=== PATIENT | female | born 1975 ===

== ENCOUNTER 2023-03-16 05:40 | Day surgery (SDC) | payer OTHER ==
[~2023-03-16 05:40] MED LIST: CLONAZEPAM0.5 M1 PO; LEVOTHYROXINE25 MCG
== END 2023-03-16 19:35 | disposition home or self-care (01) ==
LOC: CIR.AMB 05:40
PROVIDERS: ATTEND Specialist
DX: L98.7 Excessive and redundant skin and subcutaneous tissue (principal); E03.9 Hypothyroidism, unspecified; Z20.822 Contact with and (suspected) exposure to COVID-19